=== PATIENT | male | born 1990 | race American Indian/Alaskan Native ===

== ENCOUNTER 2020-09-14 08:02 | Emergency (ER) | payer MEDICARE ==
[2020-09-14] MEDS ORDERED: SODIUM CHLORIDE 0.9% 1000 ML 1,000 ML IV ONE (08:22)
[2020-09-14] MEDS ORDERED: MORPHINE 4 MG/1 ML INJ IV ONE (08:22)
[2020-09-14] MEDS ORDERED: PANTOPRAZOLE 40 MG INJ IV ONE (08:22)
[2020-09-14] MEDS ORDERED: ONDANSETRON 4 MG/2 ML INJ IV ONE (08:22)
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
[2020-09-14 08:50] LABS: Basophils # (Auto) 0.1 K/mm3 (0.0-0.1); Basophils % (Auto) 0.8 % (0.0-1.8); Eosinophils # (Auto) 0.1 K/mm3 (0.0-0.4); Eosinophils % (Auto) 0.7 % (0.0-4.3); Hematocrit 36.8 % (35.5-45.6); Lymphocytes # (Auto) 1.6 K/mm3 (1.2-5.4); Lymphocytes % (Auto) 17.6 % (13.4-35.0); Mean Corpuscular HGB Conc 35 % (32-34); Monocytes # (Auto) 0.8 K/mm3 (0.0-0.8); Monocytes % (Auto) 8.8 % (0.0-7.3); Platelet Count 235 K/mm3 (140-440); Red Blood Count 2.84 M/mm3 (3.65-5.03); Red Cell Distribution Width 15.8 % (13.2-15.2)
[2020-09-14 08:58] LABS: Mean Corpuscular Volume 130 fl (84-94)
[2020-09-14 09:06] LABS: Alanine Aminotransferase 65 units/L (7-56); Albumin 3.5 g/dL (3.9-5); Bilirubin,Direct 1.7 mg/dL (0-0.2); Blood Urea Nitrogen 9 mg/dL (9-20); Hemolysis Index 15
[2020-09-14 09:10] LABS: BUN/Creatinine Ratio 30
--- NOTE | 2020-09-14 11:27 | Cat Scan Report ---
CT ABDOMEN AND PELVIS WITH CONTRAST HISTORY: abdominal pain OMNIPAQUE 300 100ML. COMPARISON: 09/24/2019 TECHNIQUE: CT images of the abdomen and pelvis were obtained following administration of intravenous contrast. All CT scans at this location are performed using CT dose reduction for ALARA by means of automated exposure control. CONTRAST: 100 ml of intravenous contrast administered. FINDINGS: Lungs/bones: Atelectasis in the lower lungs Abdomen/pelvis: There is diffuse fatty infiltration the liver which is markedly heterogeneous and lo w in density. The liver is enlarged. Spleen appears normal. Pancreas, gallbladder and upper GI tract appear normal. There is small nodes in the retroperitoneum however no dominant adenopathy. Previously identified fluid surrounding the pancreas has improved and resolved. There is free fluid in the lowe r abdomen. Degenerative changes seen throughout spine no bowel obstruction is identified. The portal vein is patent. IMPRESSION: 1. There is a small amount of free fluid in the lower abdomen surrounding the bowel loops however no bowel obstruction is seen. This does not appear to be focal. No bowel obstruction or focal inflammato ry change in the bowel loops. 2. Hepatomegaly with diffuse fatty infiltration the liver. 3. Several small lymph nodes scattered throughout the mesentery however no dominant adenopathy. Signer Name: Adriel Powers MD Signed: 09/14/2020 11:22 AM Workstation Name: [id number]
[2020-09-14] MEDS ORDERED: KETOROLAC 30 MG/1 ML INJ IV ONE (11:53)
[2020-09-14 14:47] VITALS: BP 130/79
== END 2020-09-14 14:48 | disposition home or self-care (01) ==
LOC: ED 08:02
DX: R11.2 Nausea with vomiting, unspecified (principal); R10.9 Unspecified abdominal pain; F17.200 Nicotine dependence, unspecified, uncomplicated
CPT/HCPCS: 36415; 74177; 80048; 80076; 82150; 83690; 85025; 96361; 96374; 96375; 99284; C9113; J1885; J2270; J2405; J7030; Q9967

== ENCOUNTER 2020-09-20 11:29 | Observation (INO) | payer MEDICARE ==
[2020-09-20] MEDS ORDERED: SODIUM CHLORIDE 0.9% 1000 ML 1,000 ML IV ONE ×3 (12:17→16:04)
--- NOTE | 2020-09-20 12:30 | Emergency Department Report ---
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 infiltrate concerning for pneumonia. Given recent hospital exposure as well as possibility of aspiration I have ordered IV Zosyn to cover both anaerobes and Pseudomonas. Further work- up is still pending. Labs have resulted and reveal no significant leukocytosis or anemia. Kidney function is normal but he has hyponatremia with sodium of 128. He has transaminitis with slight elevation of AST > ALT and elevatede T bili of 3.0 and D bili of 2.0, which is similar to his lab work when he presented on 09/14 of this month. In addition, he is noted to have an elevated lactate of 3.9 as well as elevated troponin of 0.085. TSH is elevated at 5.9. D-dimer is also elevated. Given the elevated lactate, hyponatremia, and signs of dehydration on exam, I suspect that the elevated troponin is a type II troponin leak. Nonetheless we will continue to trend the troponin. We will give 30mL/kg of IV fluid and IV vancomycin in addition to Zosyn which was administered due to the possibility of severe sepsis. Erythromycin ointment has been ordered for his bilateral conjunctivitis. At 1550, CT of the head reveals a third team millimeter possible meningioma with recommendation for further elucidation with MRI. CT of the cervical spine reveals no acute abnormalities. The nurse informed that an ultrasound-guided IV was placed and the patient went to CT for an angiogram but the contrast bolus infiltrated in his arm and he was returned to the emergency department. I requested that the IV team place a another IV given that I feel it is important that he has CTA of the ches t/abdomen/pelvis to rule out potentially life-threatening pulmonary embolism versus dissection versus intra-abdominal catastrophe. At [address] Hurt, the on-call hospitalist regarding the case and the results of the diagnostic studies thus far as well as the fact that CTA still pending. He accepts the patient for admission and will assume care. Another IV was placed and the patient underwent CTA of the chest/abdomen/pelvis, which reveals a small pericardial effusion, right pleural effusion with what the radiologist reads as atelectasis of the right lung, as well as findings cons istent with possible pancreatitis and hepatomegaly/steatosis. At 1800, I spoke with Dr. Hurt again regarding the case and he requests that I place bridge orders to admit the patient to [facility] with telemetry. Critical Care Time: Yes Critical care time in (mins) excluding proc time.: 85 Critical care attestation.: If time is entered above; I have spent that time in minutes in the direct care of this critically ill patient, excluding procedure time. Critical care time was spent in the evaluation, assessment, work-up, and management of sepsis, pancreatitis, pneumonia, electrolyte abnormalities, requiring IV fluids, broad-spectrum antibiotics, CTA, and multiple reevaluations and reassessments. ED Disposition Clinical Impression: Sepsis, Transaminitis, Pancreatitis, Pneumonia, Pericardial effusion, Bilateral conjunctivitis, Abnormal head CT, Elevated troponin, Pleural effusion, right, Hyponatremia, Suspected 2019 novel coronavirus infection, Elevated TSH Disposition: 09 OP ADMIT IP TO THIS HOSP Is pt being admited?: Yes Condition: Serious Instructions: Bacterial Pneumonia (ED) Referrals: PRIMARY CARE, [Primary Care Provider] - 3-5 Days
[2020-09-20] MEDS ORDERED: FLUORESCEIN 1 MG STRIP OP ONE (12:55)
[2020-09-20] MEDS ORDERED: TETRACAINE 0.5% OPHTH SOLN 4ML OU STA (12:55)
--- NOTE | 2020-09-20 13:46 | XRay Report ---
CHEST 1 VIEW INDICATION / CLINICAL INFORMATION: poss sepsis. COMPARISON: Prior chest radiograph 09/24/2019 FINDINGS: SUPPORT DEVICES: None. HEART / MEDIASTINUM: No significant abnormality. LUNGS / PLEURA: There is small right pleural effusion with mild right basilar parenchymal disease. Th is certainly is worrisome for pneumonia. Left lung is grossly clear. There is pulmonary venous conges tion. No pneumothorax. ADDITIONAL FINDINGS: No significant additional findings. IMPRESSION: 1. Interval development of small right pleural effusion and right basilar parenchymal disease. Signer Name: Mirta Uribe MD Signed: 09/20/2020 1:42 PM Workstation Name: [id number]
[2020-09-20] MEDS ORDERED: PIPERACIL/TAZOBACTA 4.5/NS 100 4.5 GM/100 ML VIAL IV ONE (13:57)
[2020-09-20] MEDS ORDERED: KETOROLAC 30 MG/1 ML INJ IV ONE (14:05)
[2020-09-20] MEDS ORDERED: PANTOPRAZOLE 40 MG INJ IV ONE (14:05)
--- NOTE | 2020-09-20 15:16 | Cat Scan Report ---
CT HEAD WITHOUT CONTRAST INDICATION / CLINICAL INFORMATION: Feels confused + somnolent. TECHNIQUE: All CT scans at this location are performed using CT dose reduction for ALARA by means of automated e xposure control. COMPARISON: None available. FINDINGS: HEMORRHAGE: No evidence of intracranial hemorrhage or extra-axial fluid collection. EXTRA-AXIAL SPACES: Cortical sulci, sylvian fissures and basilar cisterns have an unremarkable appear ance. VENTRICULAR SYSTEM: The third and lateral ventricles are of normal size and configuration. CEREBRAL PARENCHYMA: No areas of abnormal brain parenchymal attenuation are identified. There is no i ndication of recent infarction. There is a 13 mm diameter area of increased attenuation along the pos terior lateral aspect of the right middle cranial fossa. This could represent artifact, however, poss ibility of meningioma in this location cannot be entirely excluded. Follow-up evaluation to include M RI brain without and with contrast the considered. MIDLINE SHIFT OR HERNIATION: There is no mass effect. CEREBELLUM / BRAINSTEM: Brainstem and cerebellum have an unremarkable appearance. MIDLINE STRUCTURES:No abnormalities of the pituitary gland or pineal region are identified. INTRACRANIAL VESSELS:No abnormalities are identified on this noncontrast head CT. ORBITS: visualized portions of the orbits have an unremarkable appearance. SOFT TISSUES of HEAD: No significant abnormality. CALVARIUM: Evaluation of bone windows reveals no abnormalities. PARANASAL SINUSES / MASTOID AIR CELLS: Visualized portions of the paranasal sinuses are free from inf lammatory mucosal disease. Mastoid air cells are normally pneumatized. IMPRESSION: 1. 13 mm region of increased attenuation along the posterior lateral aspect of the right middle crani al fossa. While this may represent scan artifact the possibility meningioma must be considered. Follo w-up with MRI brain without and with contrast is suggested. 2. Otherwise normal head CT without contrast. Signer Name: Papito Barry MD Signed: 09/20/2020 3:12 PM Workstation Name: [id number]
--- NOTE | 2020-09-20 15:21 | Cat Scan Report ---
CT CERVICAL SPINE WITHOUT CONTRAST INDICATION / CLINICAL INFORMATION: neck pain. TECHNIQUE: Axial CT images were obtained through the cervical spine. Sagittal and coronal reformatted images wer e produced. All CT scans at this location are performed using CT dose reduction for ALARA by means of automated exposure control. COMPARISON: None available. FINDINGS: ALIGNMENT: Patient's head is turned of the left time of this study. Alignment at the atlantoaxial jignesh ction reflects this. The degree of rotation at the C1-2 level is within physiological limits. Loss of the normal cervical lordosis is noted. No additional abnormalities of alignment are identified. VERTEBRAE: There is evidence of remote well-corticated fracture through the C6 spinous process. There is no indication of recent cervical fracture. DISC SPACES: Panel Machine Operator is fairly well-maintained throughout. DEGENERATIVE CHANGES: There is no indication of significant facet or uncovertebral arthropathy. Centr al spinal canal and neuroforamina are adequately maintained throughout cervical region. CRANIOCERVICAL JUNCTION:No significant abnormality. SPINAL CANAL: Central spinal canal is adequately maintained throughout. PARASPINAL SOFT TISSUES: No significant abnormality. ADDITIONAL FINDINGS: None. LUNG APICES: No significant abnormality of visualized lungs. IMPRESSION: 1. No indication of fracture or traumatic subluxation. 2. Central spinal canal and neuroforamina are adequately maintained throughout cervical region. Signer Name: Papito Barry MD Signed: 09/20/2020 3:16 PM Workstation Name: [id number]
[2020-09-20 15:35] LABS: Hematocrit 36.8 % (35.5-45.6); Hemoglobin 12.7 gm/dl (11.8-15.2); Mean Corpuscular HGB Conc 34 % (32-34); Platelet Count 296 K/mm3 (140-440); Red Blood Count 2.86 M/mm3 (3.65-5.03); Red Cell Distribution Width 15.7 % (13.2-15.2)
[2020-09-20 15:38] LABS: INR 1.19 (0.87-1.13)
[2020-09-20 15:39] LABS: Partial Thromboplastin Time 41.1 Sec. (24.2-36.6)
[2020-09-20 15:44] LABS: C-Reactive Protein 1.4 mg/dL (0.00-1.30)
[2020-09-20 15:46] LABS: Alanine Aminotransferase 90 units/L (7-56); Albumin 3.6 g/dL (3.9-5); Blood Urea Nitrogen 9 mg/dL (9-20); Hemolysis Index 7
[2020-09-20 15:54] LABS: Mean Corpuscular Volume 129 fl (84-94)
[2020-09-20 15:56] LABS: BUN/Creatinine Ratio 23
[2020-09-20] MEDS ORDERED: VANCOMYCIN 1,000 MG in SODIUM CHLORIDE 0.9% 500 ML 500 ML IV ONE (16:04)
[2020-09-20 16:11] LABS: Chol/HDL Ratio 9.52 %; HDL Cholesterol 25 mg/dL (40-59); LDL Cholesterol,Direct 162 mg/dL (50-130)
[2020-09-20 16:46] LABS: Total Cells Counted 100
[2020-09-20 16:47] LABS: Anisocytosis Few; Macrocytosis 2+
[2020-09-20] MEDS ORDERED: VANCOMYCIN 1,500 MG in SODIUM CHLORIDE 0.9% 500 ML 500 ML IV ONE (17:00)
--- NOTE | 2020-09-20 18:19 | Cat Scan Report ---
CTA CHEST WITH IV CONTRAST INDICATION: assess for PE OMNI 350 60 ML. Chest pain, shortness of breath TECHNIQUE: Axial CT images were obtained through the chest after injection of IV contrast. 3 plane MIP reconstru ctions were produced. All CT scans at this location are performed using CT dose reduction for ALARA b y means of automated exposure control. COMPARISON: None available. FINDINGS: Pulmonary Arteries: No pulmonary emboli. Thoracic Aorta: No acute abnormality. Heart: There is a small pericardial effusion. Lungs: No acute air space or interstitial disease. There is mild atelectasis in the right lung base. Pleura: There is a trace right pleural effusion. No left pleural effusion. No pneumothorax. Lymph Nodes: No significant adenopathy. Additional Findings: There is extravasated contrast within the visualized right upper extremity exten ding into the right axilla. Skeletal Structures: No significant osseous abnormality. IMPRESSION: 1. No CT evidence for pulmonary embolism. 2. Small pericardial effusion. 3. Trace right pleural effusion with associated adjacent atelectasis in the right lung base. 4. There is extravasated contrast within the visualized right arm extending into the right axilla. Signer Name: Castro Sheets MD Signed: 09/20/2020 6:15 PM Workstation Name: [id number]
--- NOTE | 2020-09-20 18:25 | Cat Scan Report ---
CT ABDOMEN AND PELVIS WITH IV CONTRAST INDICATION: assess for pancreatitis vs. intra-abdominal infect OMNI 350 60. COMPARISON: CT 6 days prior. TECHNIQUE: All CT scans at this facility use dose modulation, automated exposure control, iterative reconstructi on or weight based dosing, when appropriate, to reduce radiation dose to as low as reasonably achieva ble. FINDINGS: Skeletal System: No acute abnormality. ABDOMEN: Liver: Hepatomegaly and advanced hepatic steatosis are again noted. Gallbladder: No significant abnormality. Bile Ducts: No significant abnormality. Pancreas: There is mild stranding around the pancreas tracking into the peritoneal lower abdomen/pelv is. Spleen: No significant abnormality. Adrenals: No significant abnormality. Right Kidney: No significant abnormality. Left Kidney: No significant abnormality. Upper GI tract: No significant abnormality. Lymph Nodes: No significant adenopathy. Aorta: No significant abnormality. Additional Findings: There is extravasated contrast within the included right arm. PELVIS: Colon: No acute abnormality. Diverticulosis is noted. Urinary Bladder and Distal Ureters: No significant abnormality. Appendix: Not visualized. Lymph Nodes: No significant adenopathy. Additional Findings: None. IMPRESSION: 1. Very mild peripancreatic stranding tracking into the extraperitoneal lower abdomen and pelvis cou ld be seen in the setting of mild pancreatitis. 2. Hepatomegaly and hepatic steatosis. Signer Name: Castro Sheets MD Signed: 09/20/2020 6:21 PM Workstation Name: [email or web address]
[2020-09-20 21:11] LABS: Amphetamine Screen,Urine Negative; Benzodiazepines Screen,Urine Negative; Opiate Screen,Urine Negative
[2020-09-20 21:19] LABS: Bacteria,Urine 1+ /HPF (Negative); Bilirubin,Urine MOD (Negative); Blood,Urine NEG (Negative); Color,Urine Amber (Yellow); Hyaline Casts,Urine 1 /LPF; Mucus,Urine 2+ /HPF
[2020-09-20 21:26] LABS: Cocaine Screen,Urine Negative; Methadone Screen,Urine Positive
[2020-09-20 21:27] LABS: Cannabinoid Screen,Urine Positive
[2020-09-20 21:28] LABS: Ictotest,Urine Positive (Negative)
[2020-09-20] MEDS: ERYTHROMYCIN 5 MG/1 GM OPHTH OINT OU SCH (23:20)
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
[2020-09-21] MEDS ORDERED: METOCLOPRAMIDE 10 MG/2 ML INJ IV PRN (00:34)
[2020-09-21] MEDS ORDERED: oxyCODONE /ACETAMINOPHEN 5-325MG TAB PO PRN (00:34)
[2020-09-21] MEDS ORDERED: ACETAMINOPHEN 325 MG TAB PO PRN (00:34)
[2020-09-21] MEDS ORDERED: ONDANSETRON 4 MG/2 ML INJ IV PRN (00:34)
[2020-09-21] MEDS ORDERED: SODIUM CHLORIDE 0.9% 1000 ML 1,000 ML IV SCH (00:45)
[2020-09-21] MEDS ORDERED: AZITHROMYCIN/NS 500 MG/250 ML 500 MG/250 ML BAG IV SCH (01:00)
[2020-09-21] MEDS ORDERED: cefTRIAXone/NS 2 GM/100 ML 2 GM/100 ML BAG IV SCH (01:00)
[2020-09-21] MEDS ORDERED: dexAMETHasone 4 MG/ML VIAL IV SCH (01:00)
[2020-09-21] MEDS: HYDROmorphone 1 MG/1 ML INJ IV PRN ×2 (01:44→05:58)
[2020-09-21] MEDS ORDERED: ENOXAPARIN 40 MG/0.4 ML INJ SUB-Q SCH (07:00)
[2020-09-21] MEDS ORDERED: ENOXAPARIN 80 MG/0.8 ML INJ SUB-Q SCH (08:00)
[2020-09-21] MEDS ORDERED: DEXTROSE 50% IN WATER (25GM) 50 ML SYRINGE IV ONE ×4 (08:42→16:55)
[2020-09-21] MEDS ORDERED: DEXTROSE 5% IN WATER 1,000 ML IV SCH (09:00)
[2020-09-21] MEDS ORDERED: ALBUTEROL 2.5 MG/3 ML NEBU IH PRN (09:24)
[2020-09-21] MEDS: IPRATROPIUM/ALBUTEROL SULFATE 3 ML AMPUL.NEB IH SCH ×2 (09:52→14:40)
[2020-09-21] MEDS ORDERED: HEPARIN 5,000 UNIT/1 ML VIAL SUB-Q SCH (10:00)
[2020-09-21] MEDS: ERYTHROMYCIN 5 MG/1 GM OPHTH OINT OU SCH ×2 (11:00→14:40)
[2020-09-21 11:56] LABS: Creatine Kinase MB 6.2 ng/mL (0.0-4.0)
[2020-09-21] MEDS ORDERED: ALBUTEROL 2.5 MG/3 ML NEBU IH SCH (12:00)
--- NOTE | 2020-09-21 12:26 | Consultation ---
History of Present Illness Consult date: 09/21/20 Consult reason: elevated troponin History of present illness: Patient is very somnolent currently and not able to provide history. History was obtained from medical records. He has had multiple bouts of hypoglycemia since admission. 30 year-old male with history of asthma and recent diagnosis of pancreatitis brought in by EMS due to worsening and continued body aches, chest pain with deep breaths, subjective fever, and bilateral eye redness, foreign body sensation, and blurry vision for the past week since he was discharged from this hospital 1 week ago. The patient states that he was diagnosed with pancreatitis and was admitted last week and discharged 1 week ago. He says since then he has continued to have body aches, subjective fevers, and also with pleuritic chest pain occasionally. He also states that he feels more confused. He has continued to have abdominal pain but denies nausea vomiting. He also denies any cough, shortness of breath, dysuria, back pain, focal weakness, sensory changes, neck stiffness, or any other complaints. He was found to have minimal troponin elevation. He was also found to have elevated lactic acid and is currently being tested for COVID 19 infection. ECG reveals SR with minimal ST elevation mostly in inferior leads, possible early repolarization Past History Past Medical History: other (pancreatitis, asthma) Past Surgical History: Other (LE amputation) Family history: hypertension Medications and Allergies Allergies Allergy/AdvReac Type Severity Reaction Status Date / Time No Known Allergies Allergy Verified 09/25/19 00:04 Home Medications Medication Instructions Recorded Confirmed Last Taken Type Ondansetron [Zofran Odt] 4 mg PO Q8HR PRN #14 tab.rapdis 09/14/20 Unknown Rx traMADoL [Ultram 50 MG tab] 50 mg PO Q4HR PRN #14 tablet 09/14/20 Unknown Rx Active Meds: Active Medications Acetaminophen (Acetaminophen 325 Mg Tab) 650 mg PO Q4H PRN PRN Reason: Pain MILD(1-3)/Fever >100.5/CHURCH Albuterol (Albuterol 2.5 Mg/3 Ml Nebu) 2.5 mg IH Q4H PRN PRN Reason: Shortness Of Breath Albuterol/Ipratropium (Ipratropium/Albuterol Sulfate 3 Ml Ampul.Neb) 1 ampul IH TIDRT COUNT INCLUDES THE [facility] Last Admin: 09/21/20 09:52 Dose: 1 ampul Documented by: Dexamethasone (Dexamethasone 4 Mg/Ml Vial) 8 mg IV Q24H COUNT INCLUDES THE [facility] Last Admin: 09/21/20 02:26 Dose: 8 mg Documented by: Enoxaparin Sodium (Enoxaparin 80 Mg/0.8 Ml Inj) 70 mg SUB-Q Q12HR COUNT INCLUDES THE [facility] Last Admin: 09/21/20 09:14 Dose: 70 mg Documented by: Erythromycin (Erythromycin 5 Mg/1 Gm Ophth Oint) 1 applic OU QID COUNT INCLUDES THE [facility] Stop: 09/27/20 21:59 Last Admin: 09/20/20 23:20 Dose: 1 applic Documented by: Hydromorphone HCl (Hydromorphone 1 Mg/1 Ml Inj) 0.5 mg IV Q3H PRN PRN Reason: Pain , Severe (7-10) Last Admin: 09/21/20 05:58 Dose: 0.5 mg Documented by: Azithromycin (Zithromax/Ns) 500 mg in 250 mls @ 250 mls/hr IV Q24H COUNT INCLUDES THE [facility] Last Admin: 09/21/20 02:07 Dose: 250 mls/hr Documented by: Ceftriaxone Sodium (Rocephin/Ns 2 Gm/100 Ml) 2 gm in 100 mls @ 200 mls/hr IV Q24H COUNT INCLUDES THE [facility]; Protocol Last Admin: 09/21/20 01:44 Dose: 200 mls/hr Documented by: Dextrose (D5w) 1,000 mls @ 75 mls/hr IV DIRECT COUNT INCLUDES THE [facility] Last Admin: 09/21/20 09:14 Dose: 75 mls/hr Documented by: Metoclopramide HCl (Metoclopramide 10 Mg/2 Ml Inj) 10 mg IV Q6H PRN PRN Reason: Nausea And Vomiting Ondansetron HCl (Ondansetron 4 Mg/2 Ml Inj) 4 mg IV Q8H PRN PRN Reason: Nausea And Vomiting Oxycodone/Acetaminophen (Oxycodone /Acetaminophen 5-325mg Tab) 1 tab PO Q6H PRN PRN Reason: Pain, Moderate (4-6) Sodium Chloride (Sodium Chloride 0.9% 10 Ml Flush Syringe) 10 ml IV BID COUNT INCLUDES THE [facility] Last Admin: 09/21/20 10:16 Dose: 10 ml Documented by: Sodium Chloride (Sodium Chloride 0.9% 10 Ml Flush Syringe) 10 ml IV PRN PRN PRN Reason: LINE FLUSH Review of Systems All systems: negative (per hpi) Physical Examination Vital Signs Temp Pulse Resp BP Pulse Ox 98 F 114 H 16 110/71 99 09/20/20 11:55 09/20/20 11:55 09/20/20 11:55 09/20/20 11:55 09/20/20 11:55 HEENT: Positive: PERRL, EOMI Cardiac: Positive: Reg Rate and Rhythm. Negative: Systolic Murmur Lungs: Positive: clear to auscultation Abdomen: Positive: Soft, Active Bowel Sounds Extremities: Present: Other (BKA) Results 09/20/20 14:57 09/21/20 10:28 Cardiac Enzymes 09/20/20 09/20/20 09/21/20 Range/Units 14:57 14:57 10:28 AST 190 H (5-40) units/L Lactate Dehydrogenase 311 H (91-180) units/L CK-MB (CK-2) 6.2 H (0.0-4.0) ng/mL Coagulation 09/20/20 Range/Units 14:57 PT 15.6 H (12.2-14.9) Sec. INR 1.19 H (0.87-1.13) APTT 41.1 H (24.2-36.6) Sec. Lipids 09/20/20 Range/Units 14:57 Triglycerides 306 H (2-149) mg/dL Cholesterol 238 H (50-199) mg/dL HDL Cholesterol 25 L (40-59) mg/dL Cholesterol/HDL Ratio 9.52 % CBC 09/20/20 Range/Units 14:57 WBC 9.3 (4.5-11.0) K/mm3 RBC 2.86 L (3.65-5.03) M/mm3 Hgb 12.7 (11.8-15.2) gm/dl Hct 36.8 (35.5-45.6) % Plt Count 296 (140-440) K/mm3 Comprehensive Metabolic Panel 09/20/20 09/20/20 09/21/20 Range/Units 14:57 14:57 10:28 Sodium 128 L (137-145) mmol/L Potassium 4.5 (3.6-5.0) mmol/L Chloride 87.8 L (98-107) mmol/L Carbon Dioxide 22 (22-30) mmol/L BUN 9 (9-20) mg/dL Creatinine 0.4 L (0.8-1.3) mg/dL Glucose 67 L 64 L 32 L* (75-100) mg/dL Calcium 9.0 (8.4-10.2) mg/dL Direct Bilirubin 2.0 H (0-0.2) mg/dL Indirect Bilirubin 1.0 mg/dL AST 190 H (5-40) units/L ALT 90 H (7-56) units/L Alkaline Phosphatase 105 (35-129) units/L Total Protein 7.3 (6.3-8.2) g/dL Albumin 3.6 L (3.9-5) g/dL Assessment and Plan 1. Minimal troponin elevation: Not consistent with ACS 2. SIRS/Sepsis: Covid testing pending 3. Hypoglycemia Recommend: Agree with Covid testing Check Echocardiogram Repeat ECG
[2020-09-21] MEDS ORDERED: GLUCAGON (HUMAN RECOMBINANT) 1 MG/ML INJ IV ONE ×2 (13:32→15:00)
[2020-09-21] MEDS ORDERED: DEXTROSE 50% IN WATER (25GM) 50 ML SYRINGE IV PRN (13:33)
[2020-09-21 14:51] VITALS: BP 104/64
[2020-09-21] MEDS ORDERED: EPINEPHrine 1 MG/10 ML SYRINGE ONE (16:55)
[2020-09-21 17:05] LABS: Creatine Kinase MB 7.8 ng/mL (0.0-4.0)
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
--- NOTE | 2020-09-21 21:13 | Event Note ---
Date: 09/21/20 JOSE BOSTON was called at 1658 hrs. ACLS protocol was initiated Epinephrine and sodium bicarbonate given multiple times Patient was in flatline continuously CPR was done continuously for 8 minutes Could not revive the patient Cause of Cardiorespiratory arrest Sepsis Hypoglycemia Right lower lobe pneumonia Patient's next of kin Patel Tomas was called at telephone number [phone] and was told about the cardiac arrest and possible reasons for his cardiac arrest.
[2020-09-21] MEDS ORDERED: ETOMIDATE 20 MG/10 ML INJ IV ONE (21:47)
[2020-09-21] MEDS ORDERED: ROCURONIUM 50 MG/5 ML INJ IV ONE (21:47)
[2020-09-22] MEDS: IPRATROPIUM/ALBUTEROL SULFATE 3 ML AMPUL.NEB IH SCH (06:15)
--- NOTE | 2020-09-22 10:38 | Electrocardiograph Report ---
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
== END 2020-09-21 22:05 ==
LOC: ED 11:29 → 3A 22:08
PROVIDERS: ADMIT Internal Medicine; ATTEND Internal Medicine
DX: A41.9 Sepsis, unspecified organism (principal); Z20.822 Contact with and (suspected) exposure to COVID-19; J18.9 Pneumonia, unspecified organism; I21.4 Non-ST elevation (NSTEMI) myocardial infarction; J90 Pleural effusion, not elsewhere classified; J45.909 Unspecified asthma, uncomplicated; K86.1 Other chronic pancreatitis; E87.1 Hypo-osmolality and hyponatremia; B34.9 Viral infection, unspecified; R74.01 Elevation of levels of liver transaminase levels; K85.90 Acute pancreatitis without necrosis or infection, unspecified; E16.2 Hypoglycemia, unspecified; H10.9 Unspecified conjunctivitis; R93.0 Abnormal findings on diagnostic imaging of skull and head, not elsewhere classified; R77.8 Other specified abnormalities of plasma proteins; Z79.899 Other long term (current) drug therapy; Z98.890 Other specified postprocedural states
CPT/HCPCS: 31720; 36415; 70450; 71045; 71275; 72125; 74177; 80048; 80061; 80076; 80307; 81001; 82140; 82550; 82553; 82728; 82947; 82962; 83615; 83690; 83735; 83880; 84145; 84443; 84484; 85025; 85379; 85610; 85730; 86140; 87040; 87086; 93005; 94640; 96361; 96365; 96366; 96367; 96368; 96372; 96375; 96376; 99291; 99292; C9113; G0378; J0171; J0456; J0696; J1100; J1170; J1610; J1650; J1885; J2543; J3370; J7030; J7040; J7070; Q9967; U0003; 80320; 85007; G0480